=== PATIENT | female | born 1960 | race Caucasian/White ===

== ENCOUNTER 2020-10-14 19:45 | Emergency (ER) | payer OTHER ==
[2020-10-14 21:25] LABS: HEMOGLOBIN 9.9 gm/dl (12.3-15.3); RED BLOOD COUNT 3.48 M/UL (4.00-5.10); WHITE BLOOD COUNT 5.5 K/UL (4.5-11.0)
[2020-10-15] MEDS ORDERED: ZOFRAN ODT 4 MG4 MG PO (01:10)
[2020-10-15] MEDS ORDERED: DIFICID 200 MG200 MG PO (01:10)
[2020-10-15] MEDS ORDERED: BENTYL 20MG TAB20 MG PO (01:10)
== END 2020-10-15 01:29 | disposition home or self-care (01) ==
LOC: ER1 19:45
PROVIDERS: Physician Assistant
DX: A04.72 Enterocolitis due to Clostridium difficile, not specified as recurrent (principal); I12.9 Hypertensive chronic kidney disease with stage 1 through stage 4 chronic kidney disease, or unspecified chronic kidney disease; N18.9 Chronic kidney disease, unspecified; Z86.19 Personal history of other infectious and parasitic diseases; Z88.1 Allergy status to other antibiotic agents
CPT/HCPCS: 80053; 81001; 83605; 83690; 85025; 96374; 96375; 99284; J2270; Q9967

== ENCOUNTER 2021-03-02 19:00 | Emergency (ER) | payer OTHER ==
[~2021-03-02 19:00] MED LIST: BENTYL 20MG TAB20 MG PO; DIFICID 200 MG200 MG PO; ZOFRAN ODT 4 MG4 MG PO
[2021-03-02] MEDS ORDERED: HYDROCODON-ACE1 EAC4 PO (21:22)
[2021-03-02] MEDS ORDERED: BACTROBAN OINT22 GM EXT (21:27)
== END 2021-03-02 21:33 | disposition home or self-care (01) ==
LOC: ER1 19:00
DX: S22.41XA Multiple fractures of ribs, right side, initial encounter for closed fracture (principal); S50.811A Abrasion of right forearm, initial encounter; J44.9 Chronic obstructive pulmonary disease, unspecified; I10 Essential (primary) hypertension; W01.0XXA Fall on same level from slipping, tripping and stumbling without subsequent striking against object, initial encounter; Y92.009 Unspecified place in unspecified non-institutional (private) residence as the place of occurrence of the external cause
CPT/HCPCS: 71045; 96372; 99283; J1885